=== PATIENT | male | born 1950 | race American Indian/Alaskan Native ===

== ENCOUNTER 2017-11-14 09:18 | Outpatient (CLI) | payer BC ==
--- NOTE | 2017-11-14 12:48 | XRay Report ---
ROUTINE CHEST, TWO VIEWS: HISTORY: Fever. The trachea, heart, mediastinal contour, lung espinosa and bony thorax are unremarkable. IMPRESSION: Unremarkable chest x-ray.
== END 2017-11-14 09:19 | disposition home or self-care (01) ==
LOC: SPVIMAG 09:18
PROVIDERS: ATTEND Internal Medicine
DX: R50.9 Fever, unspecified (principal)
CPT/HCPCS: 71046

== ENCOUNTER 2018-11-28 10:10 | Outpatient (CLI) | payer BC ==
--- NOTE | 2018-11-28 11:26 | XRay Report ---
RIGHT HAND, 3 VIEWS INDICATION: RT HAND/WRIST/PAIN/SWELLING. COMPARISON: None. IMPRESSION: Borderline bone mineralization. No evidence for fracture, bone lesion, malalignment or e rosive joint pathology. The soft tissues are unremarkable. RIGHT WRIST, 3 VIEWS INDICATION: RT HAND/WRIST/PAIN/SWELLING. COMPARISON: None. IMPRESSION: Borderline bone mineralization. No evidence for fracture, dislocation or ligamentous in jury. No significant degenerative changes. Soft tissues are unremarkable. Signer Name: Michael Donovan Jr, MD Signed: 11/28/2018 11:22 AM Workstation Name: [id number]
== END 2018-11-28 10:11 | disposition home or self-care (01) ==
LOC: SPVIMAG 10:10
PROVIDERS: ATTEND Internal Medicine
DX: M25.531 Pain in right wrist (principal); M25.431 Effusion, right wrist